=== PATIENT | male | born 1960 | race Caucasian/White ===

== ENCOUNTER → 2017-02-05 | Outpatient (REF) | LOC: WSOH 09:17 | DX: Z02.89 Encounter for other administrative examinations (principal) ==

== ENCOUNTER → 2017-02-08 | Outpatient (REF) | LOC: WSOH 08:30 | DX: Z02.89 Encounter for other administrative examinations (principal) ==

== ENCOUNTER → 2017-02-09 | Outpatient (REF) | LOC: WSOH 11:02 | DX: Z02.89 Encounter for other administrative examinations (principal) ==

== ENCOUNTER → 2017-03-08 | Outpatient (REF) | LOC: WSOH 10:03 | DX: Z23 Encounter for immunization (principal) ==

== ENCOUNTER → 2020-01-24 | Outpatient (CLI) | payer OTHER | LOC: COL.LAB 09:25 | DX: Z20.828 Contact with and (suspected) exposure to other viral communicable diseases (principal) ==